=== PATIENT | female | born 1965 | race Caucasian/White ===

== ENCOUNTER → 2025-03-30 | Outpatient (CLI) | payer BC, SELFPAY ==
--- NOTE | 2025-03-30 10:00 | XR_ITS ---
Examination: Breast ultrasound complete, bilateral Date and time of exam: March 30, 2025 1013 hours INDICATIONS: Family history BRACA positive gene Technique: Real-time grayscale ultrasonographic imaging bilateral breasts, including all 4 quadrants as well as nipple retroareolar and axillary regions. Findings: Sonographic images right breast 10:00 cyst 3 x 3 mm Sonographic images left breast 1:00 intramammary lymph node 5 x 5 mm IMPRESSION: BI-RADS Category 2: Benign findings
--- NOTE | 2025-03-30 11:00 | XR_ITS ---
Examination: Screening digital mammography, bilateral Computer aided detection 3-D breast Tomosynthesis, bilateral Date and time of exam: March 30, 2025 1038 hours Compared to mammograms dating to July 08, 2018 Indication: Screening Technique: Nonmagnified MLO, CC views of the breasts to been obtained, reconstructed from 3-D Tomosynthesis images. R2 computer aided detection program utilized for evaluation of suspicious masses and/or abnormal calcifications. 3-D Tomosynthesis images obtained. Findings: The breasts are heterogeneously dense, which may obscure small masses 10 mm focal asymmetry right breast CC view, posterior depth, slightly inner right breast, 9.4 cm from the nipple Impression: BI-RADS Category 0: Incomplete: Need additional imaging evaluation 10 mm focal asymmetry right breast CC view, posterior depth 9.4 cm from the nipple Recommend follow-up spot tomographic views inner upper right breast posterior depth as well as bilateral breast sonography to complete the workup.
== END | disposition home or self-care (01) ==
LOC: CDIM 09:57
PROVIDERS: PCP Internal Medicine; Referring Provider Specialist; Visit Provider Specialist
DX: Z12.31 Encounter for screening mammogram for malignant neoplasm of breast (principal); N64.89 Other specified disorders of breast; Z84.89 Family history of other specified conditions
CPT/HCPCS: 76641; 77063; 77067

== ENCOUNTER → 2025-03-31 | Outpatient (CLI) | payer BC, SELFPAY ==
--- NOTE | 2025-03-31 07:51 | XR_ITS ---
Examination: Diagnostic digital mammography, unilateral, right Computer aided detection 3-D breast Tomosynthesis, unilateral Date and time of exam: March 31, 2025 0802 hours INDICATIONS: Mammogram March 30, 2025 10 mm focal asymmetry right breast CC view, posterior depth, 9.4 cm from the nipple Technique: Nonmagnified MLO, CC views of the right breast have been obtained, reconstructed from 3-D Tomosynthesis images. R2 computer aided detection program utilized for evaluation of suspicious masses and/or abnormal calcifications. 3-D Tomosynthesis images obtained. Findings: The breast is heterogeneously dense, which may obscure small masses 10 mm circumscribed nodule is confirmed outer right breast on the spot compression CC view Impression: BI-RADS category 3: Probably benign findings One additional 6 month right mammogram follow-up is needed to document stability of nodule described above
== END | disposition home or self-care (01) ==
LOC: CDIM 07:45
PROVIDERS: Referring Provider Specialist; Visit Provider Specialist
DX: N63.10 Unspecified lump in the right breast, unspecified quadrant (principal); R92.331 Mammographic heterogeneous density, right breast
CPT/HCPCS: 77061; 77065; G0279

== ENCOUNTER → 2025-10-02 | Outpatient (CLI) | payer BC, SELFPAY ==
--- NOTE | 2025-10-02 10:15 | XR_ITS ---
Examination: Diagnostic digital mammography, unilateral, right Computer aided detection 3-D breast Tomosynthesis, unilateral Date and time of exam: October 02, 2025, 0950 hours INDICATIONS: Mammogram 06/30/2000 2510 mm focal asymmetry right breast cc view 9.4 cm from the nipple Technique: Nonmagnified MLO, CC views of the right breast have been obtained, reconstructed from 3-D Tomosynthesis images. R2 computer aided detection program utilized for evaluation of suspicious masses and/or abnormal calcifications. 3-D Tomosynthesis images obtained. Findings: The breast is heterogeneously dense, which may obscure small masses Focal asymmetry remains, 12 mm, 12 o'clock position right breast Impression: BI-RADS category 0: Incomplete: Need additional imaging evaluation This patient should return for repeat right breast sonography with specific attention to the 12 o'clock position right breast
== END | disposition home or self-care (01) ==
LOC: CDIM 09:43
PROVIDERS: PCP Internal Medicine; Referring Provider Specialist; Visit Provider Specialist
DX: R92.8 Other abnormal and inconclusive findings on diagnostic imaging of breast (principal)
CPT/HCPCS: 77061; 77065; G0279

== ENCOUNTER → 2025-10-06 | Outpatient (CLI) | payer BC, SELFPAY ==
--- NOTE | 2025-10-06 09:58 | XR_ITS ---
Examination: Breast ultrasound, unilateral, right Date and time of exam: October 06, 2025 1138 hours INDICATIONS: Mammogram October 02, 2000 2512 mm focal asymmetry 12 o'clock position right breast Technique: Real-time rose scale ultrasonographic imaging performed right breast including all 4 quadrants as well as nipple retroareolar and axillary region. Findings: No cystic or solid mass IMPRESSION: BI-RADS Category 1: Negative study
== END | disposition home or self-care (01) ==
LOC: CDIM 09:36
PROVIDERS: PCP Internal Medicine; Referring Provider Specialist; Visit Provider Specialist
DX: R92.0 Mammographic microcalcification found on diagnostic imaging of breast (principal)
CPT/HCPCS: 76641